=== PATIENT | male | born 2005 | race Caucasian/White ===

== ENCOUNTER 2024-09-01 10:31 | Day surgery (SDC) | payer BC ==
[2024-08-31 13:10] VITALS: BMI 28.2
[2024-09-01] MEDS ORDERED: PROPOFOL 40 ML ONE (12:21)
[2024-09-01] MEDS ORDERED: fentaNYL PF 100 MCG/2 ML SYRINGE ONE (12:22)
[2024-09-01] MEDS ORDERED: Lidocaine 1% PF 5 ML VIAL ONE (12:23)
[2024-09-01] MEDS ORDERED: CEFAZOLIN 2 GM VIAL ONE (12:39)
[2024-09-01] MEDS ORDERED: Midazolam HCl 2 mg/2 ml Vial ONE (12:57)
[2024-09-01] MEDS ORDERED: Ondansetron PF 4 MG/2 ML Vial ONE ×2 (13:07→14:42)
[2024-09-01] MEDS ORDERED: Dexamethasone 4 mg/ml Vial ONE (13:07)
[2024-09-01] MEDS ORDERED: Ketorolac Tromethamine 30 MG (1 mL) VIAL ONE (13:07)
[2024-09-01] MEDS ORDERED: Sevoflurane 250 ML INH ANEST BOTTLE ONE (13:20)
[2024-09-01] MEDS ORDERED: HYDROmorphone 2 MG/ML VIAL ONE (13:22)
[2024-09-01] MEDS ORDERED: Bupivacaine PF 0.5% 30 ML VIAL ONE (13:22)
[2024-09-01] MEDS ORDERED: fentaNYL 50 mcg/mL 1 mL Vial ONE (15:00)
== END 2024-09-01 15:51 | disposition home or self-care (01) ==
LOC: SDC 10:31
PROVIDERS: ATTEND Orthopaedic Surgery
PROC: 0QSG04Z Reposition Right Tibia with Internal Fixation Device, Open Approach (ICD-10-PCS; principal; 2024-09-01)
PROC: 0QSJ04Z Reposition Right Fibula with Internal Fixation Device, Open Approach (ICD-10-PCS; principal; 2024-09-01)
DX: S82.851A Displaced trimalleolar fracture of right lower leg, initial encounter for closed fracture (principal); Z79.899 Other long term (current) drug therapy; X50.1XXA Overexertion from prolonged static or awkward postures, initial encounter; Y93.21 Activity, ice skating
CPT/HCPCS: C1713; J0665; J1100; J1171; J1885; J2250; J2405; J2704; J3010